=== PATIENT | female | born 1950 | race Caucasian/White ===

== ENCOUNTER 2024-03-26 19:14 | Inpatient (IN) | payer OTHER ==
[2024-03-26] MEDS ORDERED: ACETAMINOPHEN INJECTION 100 ML ONE (20:38)
[2024-03-26] MEDS: SODIUM CHLORIDE 0.9% 500 ML INFUS.BAG IV ONE (21:07)
[2024-03-26] MEDS: ACETAMINOPHEN 1000 MG/100 ML BAG IVPB ONE (21:07)
[2024-03-26 21:14] LABS: VENOUS BASE EXCESS 3.3 mmol/L (-2-2); VENOUS O2 SATURATION 46.5 % (70-80); VENOUS PCO2 44.2 mmHg (38-52); VENOUS PH 7.423 (7.310-7.410)
[2024-03-26 21:15] LABS: BASO % 0.3 % (0-2.0); EOS % 0.2 % (0-4.5); HEMATOCRIT 32.6 % (32.4-45.2); HEMOGLOBIN 10.8 GM/dL (10.7-15.3); LYMPH % 15.5 % (8-40); MCH 28.3 pg (25.7-33.7); MEAN CELL VOLUME 85.7 fl (80-96); MEAN PLT VOLUME 7.8 fl (7.5-11.1); MONO % 6.6 % (3.8-10.2); NEUT % 77.4 % (42.8-82.8); PLATELET COUNT 276 10^3/uL (134-434); RBC 3.81 M/mm3 (3.60-5.2); RDW 14.2 % (11.6-15.6); WHITE BLOOD COUNT 12.4 K/mm3 (4.0-10.0)
[2024-03-26 21:26] LABS: INR 1.18 (0.83-1.09); PROTHROMBIN TIME (PATIENT) 13.5 SEC (9.7-13.0)
[2024-03-26 21:28] LABS: ACTIVATED PTT 33.1 SECONDS (25.2-36.5)
[2024-03-26 21:48] LABS: POTASSIUM 4.5 mmol/L (3.5-5.1)
[2024-03-26 21:51] LABS: BLOOD UREA NITROGEN 21.5 mg/dL (7-18)
[2024-03-26 21:52] LABS: EPI CELLS 18 /uL (0-25.1); HYALINE CASTS 1 /uL (0-3.1); PH,URINE 5.5 (5.0-8.0); URINE APPEARANCE CLEAR; URINE BACTERIA >9,000 /uL (0-1359); URINE BILIRUBIN NEGATIVE (NEGATIVE); URINE COLOR YELLOW; URINE GLUCOSE (UA) NEGATIVE (NEGATIVE); URINE KETONE NEGATIVE (NEGATIVE); URINE LEUK ESTERASE 2+ (NEGATIVE); URINE NITRITE POSITIVE (NEGATIVE); URINE PROTEIN 2+ (NEGATIVE); URINE RBC 5 /uL (0-23.9); URINE UROBILINOGEN 0.2 mg/dL (0.2-1.0); URINE WBC 414 /uL (0-25.8)
[2024-03-26 21:54] LABS: CREATININE 0.8 mg/dL (0.55-1.3)
[2024-03-26 21:55] LABS: TOT PROT 9.5 g/dl (6.4-8.2)
[2024-03-26 21:56] LABS: BILIRUBIN,TOTAL 0.5 mg/dL (0.2-1)
[2024-03-26] MEDS ORDERED: CEFTRIAXONE 1 GM/50 ML BAG ONE (22:06)
[2024-03-26] MEDS: CEFTRIAXONE 1 GM in DEXTROSE 5%-WATER - 100 ML IVPB ONE (22:10)
[2024-03-27] MEDS ORDERED: AZITHROMYCIN IVPB 500 MG/250 ML BAG IVPB ONE (02:03)
[2024-03-27] MEDS: AZITHROMYCIN IVPB 500 MG in DEXTROSE 5%-WATER - 250 ML IVPB ONE (02:23)
[2024-03-27] MEDS: SODIUM CHLORIDE 1,000 ML IV SCH (02:23)
[2024-03-27 02:42] VITALS: RESP 18
[2024-03-27 08:05] LABS: HEMOGLOBIN 9.8 GM/dL (10.7-15.3); MCH 28.5 pg (25.7-33.7); MCHC 32.6 g/dl (32.0-36.0); MEAN CELL VOLUME 87.5 fl (80-96); MEAN PLT VOLUME 7.8 fl (7.5-11.1); PLATELET COUNT 263 10^3/uL (134-434); RBC 3.43 M/mm3 (3.60-5.2); RDW 14.3 % (11.6-15.6); WHITE BLOOD COUNT 11.2 K/mm3 (4.0-10.0)
[2024-03-27 08:20] LABS: POTASSIUM 4.7 mmol/L (3.5-5.1)
[2024-03-27 08:22] LABS: ALBUMIN 2.6 g/dl (3.4-5.0); CALCIUM 9.4 mg/dL (8.5-10.1)
[2024-03-27 08:23] LABS: BLOOD UREA NITROGEN 16.1 mg/dL (7-18); MAGNESIUM 1.7 mg/dL (1.8-2.4)
[2024-03-27 08:26] LABS: CREATININE 0.7 mg/dL (0.55-1.3); PHOSPHOROUS 3.3 mg/dL (2.5-4.9)
[2024-03-27 08:27] LABS: BILIRUBIN,TOTAL 0.3 mg/dL (0.2-1); TOT PROT 8.3 g/dl (6.4-8.2)
[2024-03-27] MEDS ORDERED: AZITHROMYCIN 250 MG TABLET ONE (08:55)
[2024-03-27] MEDS ORDERED: LOSARTAN POTASSIUM 50 MG TABLET ONE (08:55)
[2024-03-27] MEDS ORDERED: CEFTRIAXONE 1 GM/50 ML BAG ONE (08:56)
[2024-03-27] MEDS ORDERED: ENOXAPARIN NA (PORCINE) 40 MG/0.4 ML DISP.SYRIN SQ ONE (08:56)
[2024-03-27] MEDS: LOSARTAN POTASSIUM 50 MG TABLET PO SCH (09:06)
[2024-03-27] MEDS: CEFTRIAXONE 1 GM in DEXTROSE 5%-WATER - 50 ML IVPB SCH (09:06)
[2024-03-27] MEDS: ENOXAPARIN NA (PORCINE) 40 MG/0.4 ML DISP.SYRIN SQ SCH (09:06)
[2024-03-27] MEDS: AZITHROMYCIN 250 MG TABLET PO SCH (09:07)
[2024-03-27] MEDS ORDERED: MAGNESIUM OXIDE 400 MG TABLET (FP) ONE (14:58)
[2024-03-27] MEDS: MAGNESIUM OXIDE 400 MG TABLET (FP) PO ONE (15:02)
[2024-03-27 16:29] VITALS: BMI 27.1
[2024-03-27] MEDS: guaiFENesin/D-METHORPHAN HB 10 ML UNIT-DOSE CUPS PO PRN (21:20)
[2024-03-28] MEDS: INSULIN ASPART SLIDING SCALE (NOVOLOG) 1 VIAL SQ SCH (01:05)
[2024-03-28] MEDS: ACETAMINOPHEN 1000 MG/100 ML BAG IVPB ONE (03:51)
[2024-03-28 09:22] LABS: HEMATOCRIT 29.9 % (32.4-45.2); HEMOGLOBIN 10.3 GM/dL (10.7-15.3); MCH 29.4 pg (25.7-33.7); MCHC 34.5 g/dl (32.0-36.0); MEAN CELL VOLUME 85.1 fl (80-96); PLATELET COUNT 261 10^3/uL (134-434); RBC 3.52 M/mm3 (3.60-5.2); WHITE BLOOD COUNT 7.2 K/mm3 (4.0-10.0)
[2024-03-28 09:44] LABS: POTASSIUM 3.7 mmol/L (3.5-5.1)
[2024-03-28 09:53] LABS: CALCIUM 9.2 mg/dL (8.5-10.1)
[2024-03-28 09:54] LABS: ALBUMIN 2.5 g/dl (3.4-5.0); BLOOD UREA NITROGEN 13.4 mg/dL (7-18); MAGNESIUM 1.9 mg/dL (1.8-2.4)
[2024-03-28 09:57] LABS: CREATININE 0.6 mg/dL (0.55-1.3)
[2024-03-28 09:58] LABS: BILIRUBIN,TOTAL 0.3 mg/dL (0.2-1); TOT PROT 8.4 g/dl (6.4-8.2)
[2024-03-28] MEDS: LIDOCAINE 4% PATCH TP SCH (14:46)
[2024-03-28] MEDS: KETOROLAC TROMETHAMINE 15 MG/ML VIAL IM ONE (14:47)
[2024-03-28] MEDS: LIDOCAINE PATCH REMOVAL MC SCH (22:00)
[2024-03-29] MEDS: ACETAMINOPHEN 1000 MG/100 ML BAG IVPB ONE (00:05)
[2024-03-29 09:19] LABS: HEMATOCRIT 30.4 % (32.4-45.2); HEMOGLOBIN 10.3 GM/dL (10.7-15.3); MCHC 33.8 g/dl (32.0-36.0); MEAN CELL VOLUME 85.8 fl (80-96); MEAN PLT VOLUME 8.1 fl (7.5-11.1); PLATELET COUNT 262 10^3/uL (134-434); RBC 3.55 M/mm3 (3.60-5.2); RDW 14.2 % (11.6-15.6); WHITE BLOOD COUNT 6.4 K/mm3 (4.0-10.0)
[2024-03-29 09:42] LABS: POTASSIUM 4.5 mmol/L (3.5-5.1)
[2024-03-29 09:44] LABS: ALBUMIN 2.5 g/dl (3.4-5.0); BLOOD UREA NITROGEN 14.7 mg/dL (7-18); CALCIUM 9.1 mg/dL (8.5-10.1); MAGNESIUM 2.2 mg/dL (1.8-2.4)
[2024-03-29 09:47] LABS: CREATININE 0.8 mg/dL (0.55-1.3)
[2024-03-29 09:49] LABS: BILIRUBIN,TOTAL 0.2 mg/dL (0.2-1); TOT PROT 8.6 g/dl (6.4-8.2)
[2024-03-29 17:36] LABS: HIV INTERPRETATION NEGATIVE (NEGATIVE)
[2024-03-30] MEDS: CEFTRIAXONE 1 GM in DEXTROSE 5%-WATER - 50 ML IVPB SCH (09:15)
[2024-03-30 09:48] LABS: HEMATOCRIT 32.7 % (32.4-45.2); HEMOGLOBIN 10.8 GM/dL (10.7-15.3); MCH 28.7 pg (25.7-33.7); MEAN PLT VOLUME 8.2 fl (7.5-11.1); PLATELET COUNT 282 10^3/uL (134-434); RBC 3.76 M/mm3 (3.60-5.2); RDW 14.3 % (11.6-15.6); WHITE BLOOD COUNT 6.8 K/mm3 (4.0-10.0)
[2024-03-30 10:13] LABS: CALCIUM 9.3 mg/dL (8.5-10.1)
[2024-03-30 10:14] LABS: ALBUMIN 2.7 g/dl (3.4-5.0); MAGNESIUM 2.3 mg/dL (1.8-2.4)
[2024-03-30 10:17] LABS: CREATININE 0.8 mg/dL (0.55-1.3)
[2024-03-30 10:19] LABS: BILIRUBIN,TOTAL 0.4 mg/dL (0.2-1)
[2024-03-30] MEDS ORDERED: oxyCODONE HCL 5 MG TABLET PO PRN (10:56)
[2024-03-30] MEDS: ACETAMINOPHEN 325 MG TABLET (FP) PO SCH (11:14)
[2024-03-30 11:46] VITALS: BP 147/64; PULSE 81; TEMP 98.1
[2024-03-30 18:09] LABS: IG A QN SERUM. 72 mg/dL (64-422)
== END 2024-03-30 12:31 | disposition home or self-care (01) | DRG 139 ==
LOC: JER 19:14 → JERBED 23:41 → OBSVTOIN 03-27 01:47 → J6S 03-27 16:05 → JERBED 03-27 23:28 → J6S 03-27 23:29
PROVIDERS: ADMIT Internal Medicine; ATTEND Internal Medicine
DX: J18.9 Pneumonia, unspecified organism (principal); I10 Essential (primary) hypertension; E11.9 Type 2 diabetes mellitus without complications; N39.0 Urinary tract infection, site not specified; R00.0 Tachycardia, unspecified; R05.9 Cough, unspecified; B96.20 Unspecified Escherichia coli [E. coli] as the cause of diseases classified elsewhere; K44.9 Diaphragmatic hernia without obstruction or gangrene
CPT/HCPCS: 0241U-QW; 36415; 71045-TC-FY; 71046-TC-FY; 71250-TC; 80053; 81003; 82784; 82803; 82962; 83036; 83605; 83735; 84100; 84155; 84165; 84484; 85025; 85027; 85610; 85730; 86850; 86900; 86901; 87040; 87086; 87186; 87389; 87899; 93005; 93010; 97116-GP; 97162-GP; 99285-25; G0378; J0131